=== PATIENT | male | born 1975 | race African-American/Black ===

== ENCOUNTER 2018-07-03 11:32 | Emergency (ER) | payer SELFPAY ==
[~2018-07-03] VITALS: Ht 165.1 cm; Wt 80.9 kg
[~2018-07-03 11:32] MED LIST: NO HOME MEDICATIONS
[2018-07-03 11:39] VITALS: TEMP 98.5
[2018-07-03] MEDS ORDERED: JUBLIA TOP (12:10)
[2018-07-03 12:23] LABS: BASO # 0.1 (0.0-0.2); EOS # 0.3 (0.0-0.7); EOS % 5.4 % (0-4.0); GRAN # 3.6 (1.4-6.5); GRAN % 60.7 % (42.2-75.2); HEMATOCRIT 42.9 % (42.0-52.0); HEMOGLOBIN 14.6 g/dl (13.5-18.0); LYMPH # 1.5 (1.2-3.4); LYMPH % 25.4 % (20.0-51.0); MEAN CELL VOLUME 94 fl (80.0-100.0); MEAN CORPUSCULAR HEMOGLOBIN 32 pg (27.0-31.0); MEAN CORPUSCULAR HGB CONC 34 g/dl (33.0-37.0); MEAN PLATELET VOLUME 9.4 fl (7.4-10.4); MONO # 0.4 (0.1-0.6); MONO % 6.3 % (1.7-9.3); PLATELET COUNT 265 K/mm3 (130-400); RED BLOOD COUNT 4.57 M/mm3 (4.20-5.60); REDCELL DISTRIBUTION WIDTH-CV 12.5 % (11.5-14.5)
[2018-07-03 12:32] LABS: ALBUMIN 3.9 gm/dL (3.5-5.0); BILIRUBIN,TOTAL 0.1 mg/dL (0.0-1.0); CALCIUM 8.8 mg/dL (8.4-10.2); CREATININE, serum 1.04 mg/dL (0.66-1.25); POTASSIUM 4.3 mmol/L (3.4-5.0); TOTAL PROTEIN 7.3 gm/dL (6.4-8.2)
[2018-07-03 13:15] VITALS: BP 122/60; PULSE 78
== END 2018-07-03 13:16 | disposition home or self-care (01) ==
LOC: COL.ER 11:32
PROVIDERS: Emergency Medicine
DX: R60.9 Edema, unspecified (principal); Z90.89 Acquired absence of other organs

== ENCOUNTER 2019-02-19 08:02 | Outpatient (RCR) | payer OTHER ==
[~2019-02-19 08:02] MED LIST changes: +JUBLIA TOP
== END 2019-03-19 10:23 | disposition still patient (30) ==
LOC: WSOH 08:02
DX: S90.122A Contusion of left lesser toe(s) without damage to nail, initial encounter (principal); S97.122A Crushing injury of left lesser toe(s), initial encounter; W22.8XXA Striking against or struck by other objects, initial encounter; Y92.69 Other specified industrial and construction area as the place of occurrence of the external cause; Y93.H3 Activity, building and construction; Y99.0 Civilian activity done for income or pay; Z87.891 Personal history of nicotine dependence

== ENCOUNTER 2021-09-23 17:15 | Emergency (ER) | payer SELFPAY ==
[~2021-09-23] VITALS: Ht 165.1 cm; Wt 84.5 kg
[2021-09-23 17:31] VITALS: TEMP 98.7
[2021-09-23 19:27] VITALS: BP 137/84; PULSE 82
== END 2021-09-23 19:31 | disposition home or self-care (01) ==
LOC: COL.ER 17:15
DX: S90.31XA Contusion of right foot, initial encounter (principal); W20.8XXA Other cause of strike by thrown, projected or falling object, initial encounter

== ENCOUNTER 2022-10-31 05:17 | Emergency (ER) | payer SELFPAY ==
[~2022-10-31] VITALS: Ht 162.6 cm; Wt 70.5 kg
[2022-10-31] MEDS ORDERED: NORCO 325 MG-51 TAB PO (05:49)
[2022-10-31] MEDS ORDERED: IBU600 MG PO (05:49)
[2022-10-31] MEDS ORDERED: AMOXICILLIN 8751 TAB PO (05:49)
[2022-10-31 06:02] VITALS: BP 129/87; PULSE 83; TEMP 97.9
== END 2022-10-31 06:02 | disposition home or self-care (01) ==
LOC: COL.ER 05:17
DX: K04.7 Periapical abscess without sinus (principal); Z96.5 Presence of tooth-root and mandibular implants; Z28.311 Partially vaccinated for COVID-19
CPT/HCPCS: J1885

== ENCOUNTER 2023-10-01 11:50 | Emergency (ER) | payer SELFPAY ==
[~2023-10-01] VITALS: Ht 162.6 cm; Wt 72.7 kg
[~2023-10-01 11:50] MED LIST changes: +AMOXICILLIN 8751 TAB PO; +IBU600 MG PO; +NORCO 325 MG-51 TAB PO
[2023-10-01 11:55] VITALS: BP 158/96; TEMP 97.5
[2023-10-01] MEDS ORDERED: Ketorolac 60 MG/2 ML VIAL IM ONE (12:15)
[2023-10-01] MEDS ORDERED: oxyCODONE/Acetaminophen 5-325 MG TAB PO ONE (12:15)
[2023-10-01] MEDS ORDERED: PERCOCET 325 MG1 TA2 PO (13:13)
[2023-10-01] MEDS ORDERED: NAPROSYN500 MG PO (13:13)
[2023-10-01 13:43] VITALS: PULSE 88
== END 2023-10-01 14:24 | disposition home or self-care (01) ==
LOC: COL.ER 11:50
DX: S20.212A Contusion of left front wall of thorax, initial encounter (principal); Z87.891 Personal history of nicotine dependence; W00.0XXA Fall on same level due to ice and snow, initial encounter
CPT/HCPCS: A9284; J1885